=== PATIENT | female | born 1960 | race Caucasian/White ===

== ENCOUNTER 2016-10-08 02:35 | Emergency (ER) | payer BC ==
[2016-10-08 02:44] VITALS: BP 154/79
[2016-10-08] MEDS ORDERED: LORazepam 0.5 MG Tab PO ONE (03:16)
[2016-10-08] MEDS ORDERED: Meclizine 12.5 MG Tab PO ONE ×2 (03:17→03:20)
--- NOTE | 2016-10-08 03:22 | EDM.PDOC ---
ED HPI GENERAL MEDICAL PROBLEM - General Chief Complaint: Neurological Problem Stated Complaint: DIZZY Time Seen by Provider: 10/08/16 03:10 Source of Information: Reports: Patient History Limitations: Reports: No Limitations - History of Present Illness INITIAL COMMENTS - FREE TEXT/NARRATIVE: 55-year-old female presents to the ED with acute onset of vertigo 24 hours ago. She is appreciated any movement of the left side looking upwards or downwards will set off a vertigo event. The room spins. Associated nausea without any vomiting. No recent closed head injuries. No recent upper respiratory tract infections. She has had one bout of severe be a vertigo in the past about 2 years ago. Denies any ear pain or humming ringing or buzzing or decrease in hearing. She has no symptoms if she holds perfectly still. Denies any headache. 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.) - Related Data Allergies Allergy/AdvReac Type Severity Reaction Status Date / Time adhesive Allergy Hives Verified 08/05/14 17:01 contrast dyes Allergy Hives Uncoded 02/16/14 21:41 Home Meds: Home Meds Lansoprazole [Prevacid] 15 mg PO DAILY 11/15/13 [History] Levothyroxine [Levothroid] 137 mcg PO DAILY 11/15/13 [History] Metolazone 10 mg PO DAILY 11/15/13 [History] aMILoride [Midamor] 5 mg PO DAILY 11/15/13 [History] Past Medical History Other Cardiovascular History: EDEMA - WEARS COMPRESSION STOCKINGS, VARICOSE VEINS Respiratory History: Reports: Asthma Gastrointestinal History: Reports: GERD Other OB/BYN History: HX OF X4, 1 MISSED, 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 Endocrine/Metabolic History: Reports: Hypothyroidism Other Endocrine/Metabolic History: HYPOTHYROIDISM - Past Surgical History HEENT Surgical History: Reports: Tonsillectomy Other HEENT Surgeries/Procedures: ADENOIDECTOMY Other Female Surgeries/Procedures: C-SECTIONS X3, LEFT OVARIAN CYSTECTOMY Other Musculoskeletal Surgeries/Procedures:: BILATERAL CARPAL TUNNEL RELEASES X2 , GANGLION CYSTS REMOVED BILATERAL WRISTS Social & Family History - Family History Family Medical History: Noncontributory - Tobacco Use Smoking Status *Q: Never Smoker Second Hand Smoke Exposure: No - Caffeine Use Caffeine Use: Reports: Tea - Alcohol Use Days Per Week of Alcohol Use: 0 - Recreational Drug Use Recreational Drug Use: No Drug Use in Last 12 Months: No - Living Situation & Occupation Occupation: Employed ED ROS GENERAL - Review of Systems Review Of Systems: See Below Constitutional: Denies: Fever, Chills, Malaise, Weakness, Fatigue, Weight Loss HEENT: Reports: Vertigo (Noted when looking to the left up or down or getting in and out of bed.) Respiratory: Reports: No Symptoms Cardiovascular: Reports: No Symptoms Endocrine: Reports: No Symptoms GI/Abdominal: Reports: No Symptoms : Reports: No Symptoms Musculoskeletal: Reports: No Symptoms Skin: Reports: No Symptoms Neurological: Reports: Dizziness, Difficulty Walking. Denies: Headache (Which is vertigo. Improves if she holds perfectly still.), Pre-Existing Deficit, Seizure, Syncope, Tremors, Trouble Speaking, Weakness, Change in Speech Psychiatric: Reports: No Symptoms Hematologic/Lymphatic: Reports: No Symptoms Immunologic: Reports: No Symptoms ED EXAM, DIZZINESS - Physical Exam Exam: See Below Exam Limited By: No Limitations General Appearance: Alert, WD/WN, No Apparent Distress Eye Exam: Bilateral Eye: Normal Inspection (No nice tightness.) Ears: Other (Right tympanic membrane is mildly retracted left tympanic membrane is normal.) Nose: Normal Inspection, Normal Mucosa Throat/Mouth: Normal Inspection, Normal Lips, Normal Teeth, Normal Oropharynx Head Exam: Atraumatic, Normocephalic Neck: Normal Inspection, Supple, Non-Tender, Full Range of Motion. No: Lymphadenopathy (L), Lymphadenopathy (R) Respiratory/Chest: No Respiratory Distress, Lungs Clear, Normal Breath Sounds, No Accessory Muscle Use Cardiovascular: Normal Peripheral Pulses, Regular Rate, Rhythm, No Edema, No Gallop, No Murmur Neurological: Alert, Normal Mood/Affect, Normal Dorsiflexion, CN II-XII Intact, Normal Plantar Flexion, Normal Gait, Normal Reflexes, Oriented x 3, Other (No pronator drift.). No: Abnormal Finger to Nose Extremities: Normal Inspection, Normal Range of Motion, Non-Tender, No Pedal Edema Psychiatric: Normal Affect, Normal Mood Skin Exam: Warm, Dry, Intact, Normal Color, No Rash Course - Vital Signs Last Recorded V/S: Last Vital Signs Temp 36.4 C 10/08/16 02:42 Pulse 62 10/08/16 02:42 Resp 16 10/08/16 02:42 BP 154/79 H 10/08/16 02:42 Pulse Ox 95 10/08/16 02:42 - Orders/Labs/Meds Meds: Medications Discontinued Medications Generic Name Dose Route Start Last Admin Trade Name Freq PRN Reason Stop Dose Admin Lorazepam 0.5 mg 10/08/16 03:16 10/08/16 03:22 Ativan PO 10/08/16 03:17 0.5 mg ONETIME ONE Administration Meclizine HCl 25 mg 10/08/16 03:17 10/08/16 03:22 Antivert PO 10/08/16 03:18 25 mg ONETIME ONE Administration Meclizine HCl 25 mg 10/08/16 03:20 10/08/16 03:22 Antivert PO 10/08/16 03:21 25 mg ONETIME ONE Administration - Radiology Interpretation Free Text/Narrative:: 55-year-old female presents to the ED with a 24-hour history of vertigo symptoms. Symptoms are absent if she holds perfectly still worsened if she looks to the left or upwards or downwards. She's had one previous similar bad vertigo attack about 2 years ago. No associated headache. Neuro exam is completely normal. She has no nice statements on examination. Associated nausea without any vomiting. I'm going to therefore treat her simply with meclizine 25 mg every 8 hours for the next 5 days. Given a dose now on a dose to take home to take 11:00 this morning. She will then be able to pickle pumper at closing over-the -counter which is 12.5 mg tablets and take 2 every 8 hours. Suggest doing this for 5 days. Departure - Departure Time of Disposition: 03:25 Disposition: Home, Self-Care 01 Condition: Fair Clinical Impression: Benign paroxysmal positional vertigo Qualifiers: Laterality: right Qualified Code(s): H81.11 - Benign paroxysmal vertigo, right ear - Discharge Information Referrals: Ann Dowell MD [Primary Care Provider] - Forms: ED Department Discharge Additional Instructions: Evaluation in the emergency room tonight in regards to development of vertigo earlier yesterday. Much worse since he got up this morning after sleep. Appreciated onset of vertigo when looking upwards or getting in and out of bed and looking to the left. History of a previous similar severe episode of vertigo a few years ago. Examination reveals no signs of any inner ear infection. Neurologically brain is intact with no evidence of central nervous system cause of vertigo. Causes due to right-sided labyrinthine malfunction. Treatment is to be plenty of fluids. Suggest meclizine 25 mg every 8 hours for the next 5 days. If not better by day 6 or 7 and you need to be seen by your physician again.
== END 2016-10-08 03:33 | disposition home or self-care (01) ==
LOC: JD.ED 02:35
DX: H81.11 Benign paroxysmal vertigo, right ear (principal); J45.909 Unspecified asthma, uncomplicated; K21.9 Gastro-esophageal reflux disease without esophagitis; E03.9 Hypothyroidism, unspecified; Z91.041 Radiographic dye allergy status; Z91.048 Other nonmedicinal substance allergy status; Z79.899 Other long term (current) drug therapy; Z98.890 Other specified postprocedural states
CPT/HCPCS: 99283; A9270

== ENCOUNTER 2017-09-09 18:07 | Emergency (ER) | payer BC ==
[2017-09-09 19:01] VITALS: BP 118/77
--- NOTE | 2017-09-09 19:59 | EDM.PDOC ---
ED HPI GENERAL MEDICAL PROBLEM - General Chief Complaint: Lower Extremity Injury/Pain Stated Complaint: RIGHT FOOT PAIN Time Seen by Provider: 09/09/17 18:30 Source of Information: Reports: Patient History Limitations: Reports: No Limitations - History of Present Illness INITIAL COMMENTS - FREE TEXT/NARRATIVE: This is a 56-year-old female that comes in today with right foot pain that started about a week ago. No history of trauma, was a random onset. She states that it is at the top of her foot and radiates toward the ankle on the lateral aspect of the foot. She states she has been taking ibuprofen for 4 days but it has continued to get worse. She has also tried Tylenol, rest and ice with no relief. She has also been using a walking boot which has not helped. She also has chronic bilateral leg swelling of which the etiology is unknown. The swelling has been worked up in the past with no findings per pt. No skin discoloration, except slight redness on the right lateral foot. Currently she cannot bear any weight and she feels like someone is "cutting my skin with a knife". She states that just touching the skin is painful. She does complain of nausea and vomiting but denies fever or chills, headache, chest pain, shortness of breath. She has no history of diabetes, osteoarthritis, rheumatoid arthritis , venous insufficiency, CHF, DVT. She does have a history of gout of the left toe, tendinitis, plantar fasciitis. She states this does not feel like anything she has ever had before. No other complaints at this time. Right Feet Pain Score (Numeric/FACES): 7 - Related Data Allergies Allergy/AdvReac Type Severity Reaction Status Date / Time adhesive Allergy Hives Verified 08/05/14 17:01 contrast dyes Allergy Hives Uncoded 02/16/14 21:41 Home Meds: Home Meds Lansoprazole [Prevacid] 15 mg PO DAILY 11/15/13 [History] Levothyroxine [Levothroid] 137 mcg PO DAILY 11/15/13 [History] aMILoride [Midamor] 5 mg PO DAILY 11/15/13 [History] metOLazone [Metolazone] 10 mg PO DAILY 11/15/13 [History] Past Medical History Other Cardiovascular History: EDEMA - WEARS COMPRESSION STOCKINGS, VARICOSE VEINS Respiratory History: Reports: Asthma Gastrointestinal History: Reports: GERD 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, 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, 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 Endocrine/Metabolic History: Reports: Hypothyroidism Other Endocrine/Metabolic History: HYPOTHYROIDISM - Past Surgical History HEENT Surgical History: Reports: Tonsillectomy Other HEENT Surgeries/Procedures: ADENOIDECTOMY GI Surgical History: Reports: Bariatric Procedure Other Female Surgeries/Procedures: C-SECTIONS X3, LEFT OVARIAN CYSTECTOMY Other Musculoskeletal Surgeries/Procedures:: BILATERAL CARPAL TUNNEL RELEASES X2 , GANGLION CYSTS REMOVED BILATERAL WRISTS Social & Family History - Family History Family Medical History: Noncontributory - Tobacco Use Smoking Status *Q: Never Smoker - Caffeine Use Caffeine Use: Reports: Tea - Recreational Drug Use Recreational Drug Use: No - Living Situation & Occupation Occupation: Employed Review of Systems - Review of Systems Review Of Systems: ROS reveals no pertinent complaints other than HPI. ED EXAM, GENERAL - Physical Exam Exam: See Below Exam Limited By: No Limitations General Appearance: Alert, WD/WN, Mild Distress Eye Exam: Bilateral Eye: EOMI, PERRL Ears: Normal External Exam, Hearing Grossly Normal Nose: Normal Inspection, Normal Mucosa, No Blood Throat/Mouth: Normal Inspection, Normal Lips, Normal Teeth, Normal Gums, Normal Oropharynx, Normal Voice, No Airway Compromise Head: Atraumatic, Normocephalic Neck: Normal Inspection, Supple, Non-Tender, Full Range of Motion Respiratory/Chest: No Respiratory Distress, Lungs Clear, Normal Breath Sounds, No Accessory Muscle Use, Chest Non-Tender Cardiovascular: Normal Peripheral Pulses, Regular Rate, Rhythm, No Gallop, No JVD, No Murmur, No Rub, Other (Edema bilaterally, chronic) Peripheral Pulses: 3+: Posterior Tibial (L), Posterior Tibial (R), Dorsalis Pedis (L), Dorsalis Pedis (R) GI/Abdominal: Normal Bowel Sounds, Soft, Non-Tender, No Organomegaly, No Distention, No Abnormal Bruit, No Mass (Female) Exam: Deferred Rectal (Female) Exam: Deferred Back Exam: Normal Inspection, Full Range of Motion, NT Extremities: Normal Inspection, Normal Range of Motion, Normal Capillary Refill , Pedal Edema (bilaterally), Slow Capillary Refill, Redness (right lateral aspect of right foot), Other (TTP). No: Odalys's Sign Neurological: Alert, Oriented, CN II-XII Intact, Normal Cognition, Normal Gait, Normal Reflexes, No Motor/Sensory Deficits Psychiatric: Normal Affect, Normal Mood Skin Exam: Warm, Dry, Intact, Erythema (lateral aspect of right foot), Increased Warmth (lateral aspect of right foot) Course - Vital Signs Last Recorded V/S: Last Vital Signs Temp 97.3 F 09/09/17 18:57 Pulse 56 L 09/09/17 18:57 Resp 16 09/09/17 18:57 BP 118/77 09/09/17 18:57 Pulse Ox 95 09/09/17 18:57 - Orders/Labs/Meds Orders: Active Orders 24 hr Category Date Time Status Foot 2V Rt [CR] Stat Exams 09/09/17 19:47 Taken CRP, HIGH SENSITIVITY [REF] Stat Lab 09/09/17 19:50 Received Labs: Laboratory Tests 09/09/17 09/09/17 09/09/17 Range/Units 19:50 19:50 19:50 WBC 6.45 (3.98-10.04) K/mm3 RBC 4.47 (3.98-5.22) M/mm3 Hgb 12.8 (11.2-15.7) gm/L Hct 39.4 (34.1-44.9) % MCV 88.1 (79.4-94.8) fl MCH 28.6 (25.6-32.2) pg MCHC 32.5 (32.2-35.5) g/dl RDW Std Deviation 44.2 (36.4-46.3) fL Plt Count 243 (182-369) K/mm3 MPV 11.6 (9.4-12.3) fl Neut % (Auto) 63.8 (34.0-71.1) % Lymph % (Auto) 24.3 (19.3-51.7) % Will % (Auto) 10.5 (4.7-12.5) % Eos % (Auto) 0.9 (0.7-5.8) Baso % (Auto) 0.3 (0.1-1.2) % Neut # (Auto) 4.11 (1.56-6.13) K/mm3 Lymph # (Auto) 1.57 (1.18-3.74) K/mm3 Will # (Auto) 0.68 H (0.24-0.36) K/mm3 Eos # (Auto) 0.06 (0.04-0.36) K/mm3 Baso # (Auto) 0.02 (0.01-0.08) K/mm3 ESR 40 H (0-20) mm/hr Sodium 143 (136-145) mEq/L Potassium 2.8 L (3.5-5.1) mEq/L Chloride 102 (98-107) mEq/L Carbon Dioxide 35 H (21-32) mEq/L Anion Gap 8.8 (5-15) BUN 15 (7-18) mg/dL Creatinine 1.0 (0.55-1.02) mg/dL Est Cr Clr Drug Dosing 63.71 mL/min Estimated GFR (MDRD) 58 (>60) mL/min BUN/Creatinine Ratio 15.0 (14-18) Glucose 92 (74-106) mg/dL Calcium 8.7 (8.5-10.1) mg/dL Total Bilirubin 0.5 (0.2-1.0) mg/dL AST 31 (15-37) U/L ALT 28 (14-59) U/L Alkaline Phosphatase 146 H (46-116) U/L Total Protein 6.5 (6.4-8.2) g/dl Albumin 2.9 L (3.4-5.0) g/dl Globulin 3.6 gm/dL Albumin/Globulin Ratio 0.8 L (1-2) - Re-Assessments/Exams Free Text/Narrative Re-Assessment/Exam: 09/09/17 20:01 I have ordered labs and foot Xray. 09/09/17 21:00 Dr. Last and I went over the Xray and found no acute abnormalities. Labs were not impressive for infection, but there was an elevated ESR of 40, which shows that there is an inflammatory process. Departure - Departure Time of Disposition: 10:15 Disposition: Home, Self-Care 01 Condition: Fair Clinical Impression: Foot pain, right - Discharge Information *PRESCRIPTION DRUG MONITORING PROGRAM REVIEWED*: Yes *COPY OF PRESCRIPTION DRUG MONITORING REPORT IN PATIENT JUNITO: Not Applicable Instructions: Crutch Use, Adult, [id number], Foot Pain Referrals: Ann Dowell MD [Primary Care Provider] - Jeremy Lott MD [Physician] - Forms: ED Department Discharge Additional Instructions: You were seen in the ED today for right foot pain. The Xray showed no acute abnormalities and your labs did not show an infectious process. At this time, we recommend following up with Orthopedics, Dr. Lott. Please call in the morning to make an appointment. You will be discharged home with a prescription for [place] for your pain. Take 1 tablet every 3-4 hours for pain. Total of 6 pills. Continue to rest, ice, elevate and use ibuprofen for pain/inflammation management. Continue to use your medical boot and crutches to help keep weight off the foot. Please return to the ED if worsening of symptoms and/or fever. - My Orders Last 24 Hours: My Active Orders 09/09/17 19:47 Foot 2V Rt [CR] Stat 09/09/17 19:50 CRP, HIGH SENSITIVITY [REF] Stat - Assessment/Plan Last 24 Hours: My Active Orders 09/09/17 19:47 Foot 2V Rt [CR] Stat 09/09/17 19:50 CRP, HIGH SENSITIVITY [REF] Stat
--- NOTE | 2017-09-10 07:13 | CR ---
Right foot: Four views of the right foot were obtained. Comparison: No prior foot exam. Large plantar spur is seen as well as additional spur at the attachment of the Achilles tendon to the calcaneus. Soft tissue swelling is identified. Bone density is noted at the base of the fifth metatarsal which is felt to be old. Osteopenia is present. No acute fracture, dislocation or other bony abnormality is identified. Mild soft tissue swelling is present. Impression: 1. Mild soft tissue swelling. Incidental calcaneal spurs. 2. Nothing acute is otherwise seen on right foot exam. Diagnostic code #2
== END 2017-09-09 22:37 | disposition home or self-care (01) ==
LOC: JD.ED 18:07
DX: M79.671 Pain in right foot (principal); J45.909 Unspecified asthma, uncomplicated; K21.9 Gastro-esophageal reflux disease without esophagitis; Z79.899 Other long term (current) drug therapy; Z91.041 Radiographic dye allergy status
CPT/HCPCS: 36415; 73620-26-RT; 73620-RT; 80053; 85025; 85652; 86141; 99283; 99284

== ENCOUNTER 2017-10-04 15:32 | Emergency (ER) | payer BC ==
[2017-10-04 15:45] VITALS: BP 167/65
--- NOTE | 2017-10-04 16:37 | EDM.PDOC ---
ED HPI GENERAL MEDICAL PROBLEM - General Chief Complaint: Cardiovascular Problem Stated Complaint: SWOLLEN LEGS Time Seen by Provider: 10/04/17 16:15 Source of Information: Reports: Patient History Limitations: Reports: No Limitations - History of Present Illness INITIAL COMMENTS - FREE TEXT/NARRATIVE: Patient is a 56-year-old female presents ED complaining of bilateral lower extremity swelling. This has been present for almost 3 and half weeks.As of recent she has gained 6 pounds in total with worsening edema to her lower extremities. At times at night she experiences orthopnea with laying flat. She' s been up more at night secondary to chronic pain to her feet. She was evaluated by guard immigration today with cortisone injections to the feet. MRI study was obtained indicating no fracture but severe arthritis. She was advised to come to the ED for further evaluation. She did go to the walk-in clinic today for evaluation and and stated this exceeded their capabilities. She has noticed increased swelling at night and better in the a.m. She does use compression stockings on a daily basis. She has been taking tramadol for pain with little relief. Patient does sit more hours of the day thus continued to increase in swelling. She has been eating and drinking well. Eat a balanced diet. She does have history gastric bypass this past fall has lost approximately 123 pounds. She's had a full cardiac workup prior to gastric bypass with nothing concerning. Echocardiogram was normal at that time. States 2 days ago she had a tactile fever. Has been no dizziness or palpitations, dysuria, abdominal pain, rash, near syncope episodes, change in diet, or any additional complaints. Treatments COMMUNITY DEVELOPMENT SPECIALIST: Reports: Acetaminophen Bilateral Feet Pain Score (Numeric/FACES): 7 - Related Data Allergies Allergy/AdvReac Type Severity Reaction Status Date / Time adhesive Allergy Hives Verified 10/04/17 15:44 contrast dyes Allergy Hives Uncoded 10/04/17 15:44 Home Meds: Home Meds Lansoprazole [Prevacid] 15 mg PO DAILY 11/15/13 [History] Levothyroxine [Levothroid] 137 mcg PO DAILY 11/15/13 [History] Past Medical History Other Cardiovascular History: EDEMA - WEARS COMPRESSION STOCKINGS, VARICOSE VEINS Respiratory History: Reports: Asthma Gastrointestinal History: Reports: GERD 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: HX OF X4, 1 MISSED, 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 Endocrine/Metabolic History: Reports: Hypothyroidism Other Endocrine/Metabolic History: HYPOTHYROIDISM - Past Surgical History HEENT Surgical History: Reports: Tonsillectomy Other HEENT Surgeries/Procedures: ADENOIDECTOMY GI Surgical History: Reports: Bariatric Procedure Other Female Surgeries/Procedures: C-SECTIONS X3, LEFT OVARIAN CYSTECTOMY Other Musculoskeletal Surgeries/Procedures:: BILATERAL CARPAL TUNNEL RELEASES X2 , GANGLION CYSTS REMOVED BILATERAL WRISTS Social & Family History - Family History Family Medical History: Noncontributory - Tobacco Use Smoking Status *Q: Never Smoker - Caffeine Use Caffeine Use: Reports: Tea - Recreational Drug Use Recreational Drug Use: No - Living Situation & Occupation Occupation: Employed ED ROS GENERAL - Review of Systems Review Of Systems: See Below Constitutional: Denies: Fever, Chills, Malaise, Weakness, Fatigue, Decreased Appetite HEENT: Reports: No Symptoms Respiratory: Denies: Shortness of Breath, Cough, Sputum Cardiovascular: Reports: Dyspnea on Exertion, Edema, Orthopnea. Denies: Chest Pain, Lightheadedness, Palpitations, PND, Syncope Endocrine: Reports: No Symptoms GI/Abdominal: Reports: No Symptoms Musculoskeletal: Reports: Foot Pain (Bilateral) Skin: Reports: No Symptoms Neurological: Reports: No Symptoms ED EXAM, GENERAL - Physical Exam Exam: See Below Exam Limited By: No Limitations General Appearance: Alert, WD/WN, No Apparent Distress Ears: Hearing Grossly Normal Nose: Normal Inspection Throat/Mouth: Normal Voice, No Airway Compromise Neck: Normal Inspection, Supple Respiratory/Chest: No Respiratory Distress, Lungs Clear, Normal Breath Sounds, No Accessory Muscle Use, Chest Non-Tender Cardiovascular: Normal Peripheral Pulses, Regular Rate, Rhythm, No Murmur Peripheral Pulses: 1+: Posterior Tibial (L), Posterior Tibial (R) GI/Abdominal: Normal Bowel Sounds, Soft, Non-Tender, No Organomegaly, No Distention Back Exam: Normal Inspection Extremities: Normal Range of Motion, Pedal Edema (Pedal edema noted to the feet and the distal third of the lower extremities bilateral. 1+ to trace extremity superior of that.) Neurological: Alert, Oriented, CN II-XII Intact, Normal Cognition, No Motor/ Sensory Deficits Psychiatric: Normal Affect, Normal Mood Skin Exam: Warm, Dry, Intact, Normal Color, No Rash Course - Vital Signs Last Recorded V/S: Last Vital Signs Temp 98.6 F 10/04/17 15:40 Pulse 59 L 10/04/17 15:40 Resp 18 10/04/17 15:40 BP 167/65 H 10/04/17 15:40 Pulse Ox 98 10/04/17 15:40 - Orders/Labs/Meds Orders: Active Orders 24 hr Category Date Time Status EKG 12 Lead [EKG Documentation Completion] [RC] STAT Care 10/04/17 15:53 Active UA W/MICROSCOPIC [URIN] Stat Lab 10/04/17 16:26 Ordered Labs: Laboratory Tests 10/04/17 10/04/17 10/04/17 Range/Units 16:37 16:37 16:37 WBC 4.48 (3.98-10.04) K/mm3 RBC 4.27 (3.98-5.22) M/mm3 Hgb 12.2 (11.2-15.7) gm/L Hct 37.2 (34.1-44.9) % MCV 87.1 (79.4-94.8) fl MCH 28.6 (25.6-32.2) pg MCHC 32.8 (32.2-35.5) g/dl RDW Std Deviation 42.5 (36.4-46.3) fL Plt Count 254 (182-369) K/mm3 MPV 10.7 (9.4-12.3) fl Neutrophils % (Manual) 76 H (40-60) % Band Neutrophils % 0 (0-10) % Lymphocytes % (Manual) 22 (20-40) % Atypical Lymphs % 0 % Monocytes % (Manual) 1 L (2-10) % Eosinophils % (Manual) 0 L (0.7-5.8) % Basophils % (Manual) 1 (0.1-1.2) Platelet Estimate Adequate Plt Morphology Comment Normal Anisocytosis 1+ slight RBC Morph Comment Not Reportable ESR (0-20) mm/hr Sodium 145 (136-145) mEq/L Potassium 3.1 L (3.5-5.1) mEq/L Chloride 108 H (98-107) mEq/L Carbon Dioxide 30 (21-32) mEq/L Anion Gap 10.1 (5-15) BUN 11 (7-18) mg/dL Creatinine 0.9 (0.55-1.02) mg/dL Est Cr Clr Drug Dosing 69.49 mL/min Estimated GFR (MDRD) > 60 (>60) mL/min BUN/Creatinine Ratio 12.2 L (14-18) Glucose 118 H (74-106) mg/dL Calcium 8.7 (8.5-10.1) mg/dL Total Bilirubin 0.5 (0.2-1.0) mg/dL AST 51 H (15-37) U/L ALT 42 (14-59) U/L Alkaline Phosphatase 230 H (46-116) U/L Troponin I < 0.017 (0.00-0.056) ng/mL C-Reactive Protein 1.4 H* (<1.0) mg/dL NT-Pro-B Natriuret Pep 322 H (0-125) pg/mL Total Protein 6.3 L (6.4-8.2) g/dl Albumin 2.6 L (3.4-5.0) g/dl Globulin 3.7 gm/dL Albumin/Globulin Ratio 0.7 L (1-2) TSH 3rd Generation 0.031 L (0.358-3.74) uIU/mL 10/04/17 Range/Units 16:37 WBC (3.98-10.04) K/mm3 RBC (3.98-5.22) M/mm3 Hgb (11.2-15.7) gm/L Hct (34.1-44.9) % MCV (79.4-94.8) fl MCH (25.6-32.2) pg MCHC (32.2-35.5) g/dl RDW Std Deviation (36.4-46.3) fL Plt Count (182-369) K/mm3 MPV (9.4-12.3) fl Neutrophils % (Manual) (40-60) % Band Neutrophils % (0-10) % Lymphocytes % (Manual) (20-40) % Atypical Lymphs % % Monocytes % (Manual) (2-10) % Eosinophils % (Manual) (0.7-5.8) % Basophils % (Manual) (0.1-1.2) Platelet Estimate Plt Morphology Comment Anisocytosis RBC Morph Comment ESR 33 H (0-20) mm/hr Sodium (136-145) mEq/L Potassium (3.5-5.1) mEq/L Chloride (98-107) mEq/L Carbon Dioxide (21-32) mEq/L Anion Gap (5-15) BUN (7-18) mg/dL Creatinine (0.55-1.02) mg/dL Est Cr Clr Drug Dosing mL/min Estimated GFR (MDRD) (>60) mL/min BUN/Creatinine Ratio (14-18) Glucose (74-106) mg/dL Calcium (8.5-10.1) mg/dL Total Bilirubin (0.2-1.0) mg/dL AST (15-37) U/L ALT (14-59) U/L Alkaline Phosphatase (46-116) U/L Troponin I (0.00-0.056) ng/mL C-Reactive Protein (<1.0) mg/dL NT-Pro-B Natriuret Pep (0-125) pg/mL Total Protein (6.4-8.2) g/dl Albumin (3.4-5.0) g/dl Globulin gm/dL Albumin/Globulin Ratio (1-2) TSH 3rd Generation (0.358-3.74) uIU/mL - Re-Assessments/Exams Free Text/Narrative Re-Assessment/Exam: Patient has pitting edema to her feet and distal third of the lower extremities. 1+ to trace superior. At this point patient has no significant complaints. She does have a history of shortness of breath with exertion and also some orthopnea. Described as mild in nature. She has chronic pain to her extremities. She was seen by guard immigration today with MRI study obtained with no fracture noted. She did receive a cortisone injection this morning. I've opted to obtain basic labs including: CBC, chem 14, CRP, ESR, proBNP, troponin, TSH, UA, chest x-ray two-view, EKG. EKG sinus bradycardia rate [address] changes noted. Chest x-ray no acute findings. Final interpretation is pending. Labs reviewed: Sodium 145, potassium mildly low at 3.1, glucose 118, AST 51, alk phosphatase 2:30, troponin less than 0.017, CRP 1.4, proBNP mildly elevated at 322, TSH low at 0.031. CBC essentially normal. ESR elevated at 33. At this point we don't have any thing emergent at this point to treat. This is a chronic issue and should be managed by primary care provider. Labs reviewed: Sodium 145, potassium mildly low at 3.1, glucose 118, AST 51, alk phosphatase 2:30, troponin less than 0.017, CRP 1.4, proBNP mildly elevated at 322, TSH low at 0.031. CBC essentially normal. ESR elevated at 33. At this point we don't have any thing emergent at this point to treat. This is a chronic issue and should be managed by primary care provider. I did share results of labs, EKG, and chest x-ray with the patient. She has provided to me she has taken Lasix 20 mg for 4 days with no significant change in edema to her lower extremities. She may require more. She has appointment with her PCP scheduled for this coming Sunday. Again I will let the PCP manage this. She'll continue with compression stockings as instructed. Elevate when able to reduce any swelling. Stick with a low-sodium diet. She will return back to the ED if she develops any new or worsening symptoms. The patient remained hemodynamically stable while under my care in the E.D. I discussed the concerning symptoms for which to return to the E.D. with the patient/family. The patient/family verbalized understanding. All questions were answered. Departure - Departure Time of Disposition: 18:37 Disposition: Home, Self-Care 01 Condition: Good Clinical Impression: Hypokalemia, Low TSH level, Pedal edema Instructions: Edema, Hypokalemia, Potassium Content of Foods, Peripheral Edema Referrals: Ann Dowell MD [Primary Care Provider] - Forms: ED Department Discharge Additional Instructions: Stick with a low salt diet. Elevate when able to reduce any swelling. Continue using the compression stockings as instructed. Keep appointment with PCP as scheduled for this sunday. Please return back to the ED if you develop any new or worsening symptoms. Suspect a diuretic may be required to facilitate decrease in edema. I will let the PCP manage this. Potassium is mildly low so please read the education material for potassium diet. - My Orders Last 24 Hours: My Active Orders 10/04/17 15:53 EKG 12 Lead [EKG Documentation Completion] [RC] STAT 10/04/17 16:26 UA W/MICROSCOPIC [URIN] Stat - Assessment/Plan Last 24 Hours: My Active Orders 10/04/17 15:53 EKG 12 Lead [EKG Documentation Completion] [RC] STAT 10/04/17 16:26 UA W/MICROSCOPIC [URIN] Stat
--- NOTE | 2017-10-04 17:15 | CR ---
Chest: Portable view of the chest was obtained. Comparison: Previous chest x-ray of 11/23/14. Heart size and mediastinum are within normal limits for portable technique. Lungs are clear. Degenerative change is noted within the spine with mild scoliosis. Surgical clips are seen from prior cholecystectomy. Impression: 1. Incidental findings. Nothing acute is appreciated on portable chest x-ray. Diagnostic code #2
== END 2017-10-04 18:59 | disposition home or self-care (01) ==
LOC: JD.ED 15:32
DX: R60.0 Localized edema (principal); E87.6 Hypokalemia; R94.6 Abnormal results of thyroid function studies; E03.9 Hypothyroidism, unspecified; Z91.09 Other allergy status, other than to drugs and biological substances; Z79.899 Other long term (current) drug therapy
CPT/HCPCS: 36415; 71045; 71045-26; 80053; 83880; 84443; 84484; 85007; 85027; 85652; 86140; 93005; 99284-25

== ENCOUNTER 2018-07-13 18:08 | Emergency (ER) | payer BC ==
[2018-07-13 18:42] VITALS: BP 178/85
--- NOTE | 2018-07-13 19:31 | EDM.PDOC ---
ED HPI GENERAL MEDICAL PROBLEM - General Chief Complaint: Lower Extremity Injury/Pain Stated Complaint: PAIN IN BOTH KNEES Time Seen by Provider: 07/13/18 19:07 Source of Information: Reports: Patient History Limitations: Reports: No Limitations - History of Present Illness INITIAL COMMENTS - FREE TEXT/NARRATIVE: This is a 57-year-old female. Apparently about 1 AM this morning she awoke with severe pain in both of her knees. There is also redness over the top of the knees. She says she could barely move or bend them or walk without excruciating pain. She states she has a history of gout in her feet but never a history of gout in her knees. She denies any change in her diet recently. She does not take any medications for gout. She has a history of gastric bypass surgery she cannot take any anti-inflammatories like ibuprofen. She denies any fever or chills she denies any recent illnesses colds or coughs. She is here because of the severe pain and redness of her knees. It appears that the left one is worse than the right one. Left Knee Pain Score (Numeric/FACES): 10 Right Knee Pain Score (Numeric/FACES): 7 - Related Data Allergies Allergy/AdvReac Type Severity Reaction Status Date / Time adhesive Allergy Hives Verified 07/13/18 18:36 contrast dyes Allergy Hives Uncoded 07/13/18 18:36 Home Meds: Home Meds Levothyroxine [Levothroid] 137 mcg PO DAILY 11/15/13 [History] Colchicine 0.6 mg PO BID #10 capsule 07/13/18 [Rx] Hydrocodone/Acetaminophen [Hydrocodon-Acetaminophen 5-325] 1 each PO Q6H PRN # 15 tablet 07/13/18 [Rx] Past Medical History Other Cardiovascular History: EDEMA - WEARS COMPRESSION STOCKINGS, VARICOSE VEINS Respiratory History: Reports: Asthma Gastrointestinal History: Reports: GERD 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, 1 MISSED, 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 Endocrine/Metabolic History: Reports: Hypothyroidism Other Endocrine/Metabolic History: HYPOTHYROIDISM - Past Surgical History HEENT Surgical History: Reports: Tonsillectomy Other HEENT Surgeries/Procedures: ADENOIDECTOMY GI Surgical History: Reports: Bariatric Procedure Other Female Surgeries/Procedures: C-SECTIONS X3, LEFT OVARIAN CYSTECTOMY Other Musculoskeletal Surgeries/Procedures:: BILATERAL CARPAL TUNNEL RELEASES X2 , GANGLION CYSTS REMOVED BILATERAL WRISTS Social & Family History - Family History Family Medical History: Noncontributory - Tobacco Use Smoking Status *Q: Never Smoker - Caffeine Use Caffeine Use: Reports: Tea - Recreational Drug Use Recreational Drug Use: No - Living Situation & Occupation Occupation: Employed Review of Systems - Review of Systems Review Of Systems: See Below Constitutional: Reports: No Symptoms Eyes: Reports: No Symptoms Ears: Reports: No Symptoms Nose: Reports: No Symptoms Mouth/Throat: Reports: No Symptoms Respiratory: Reports: No Symptoms Cardiovascular: Reports: No Symptoms GI/Abdominal: Reports: No Symptoms Genitourinary: Reports: No Symptoms Musculoskeletal: Reports: Other (Knee pain bilaterally) Skin: Reports: Erythema Neurological: Reports: No Symptoms Psychiatric: Reports: No Symptoms ED EXAM, GENERAL - Physical Exam Exam: See Below Exam Limited By: No Limitations General Appearance: Alert, WD/WN, No Apparent Distress Eye Exam: Bilateral Eye: Normal Inspection Ears: Normal External Exam Nose: Normal Inspection Throat/Mouth: Normal Inspection, Normal Lips, Normal Voice, No Airway Compromise Head: Normocephalic Neck: Supple Respiratory/Chest: No Respiratory Distress, Lungs Clear, Normal Breath Sounds Cardiovascular: Regular Rate, Rhythm, No Murmur GI/Abdominal: Soft Back Exam: Full Range of Motion Extremities: Joint Swelling, Other (Both of her knees she indicates her painful. The right knee appears to be less erythematous and less painful than the left knee, the left knee has a large patch of erythema over the patella area but not posteriorly or on the sides, she keeps it slightly bent because it hurts to straighten it completely though she cannot bend it completely either due to the pain) Neurological: Alert, Oriented Psychiatric: Normal Affect, Normal Mood Skin Exam: Warm, Dry Course - Vital Signs Last Recorded V/S: Last Vital Signs Temp 99.0 F 07/13/18 18:36 Pulse 65 07/13/18 18:36 Resp 18 07/13/18 18:36 BP 178/85 H 07/13/18 18:36 Pulse Ox 99 07/13/18 18:36 - Orders/Labs/Meds Labs: Laboratory Tests 07/13/18 07/13/18 Range/Units 19:34 19:34 WBC 6.60 (3.98-10.04) K/mm3 RBC 3.62 L (3.98-5.22) M/mm3 Hgb 11.0 L (11.2-15.7) gm/L Hct 34.1 (34.1-44.9) % MCV 94.2 D (79.4-94.8) fl MCH 30.4 (25.6-32.2) pg MCHC 32.3 (32.2-35.5) g/dl RDW Std Deviation 44.2 (36.4-46.3) fL Plt Count 213 (182-369) K/mm3 MPV 10.5 (9.4-12.3) fl Neut % (Auto) 61.4 (34.0-71.1) % Lymph % (Auto) 27.0 (19.3-51.7) % Stearns % (Auto) 10.3 (4.7-12.5) % Eos % (Auto) 0.9 (0.7-5.8) Baso % (Auto) 0.2 (0.1-1.2) % Neut # (Auto) 4.06 (1.56-6.13) K/mm3 Lymph # (Auto) 1.78 (1.18-3.74) K/mm3 Stearns # (Auto) 0.68 H (0.24-0.36) K/mm3 Eos # (Auto) 0.06 (0.04-0.36) K/mm3 Baso # (Auto) 0.01 (0.01-0.08) K/mm3 Sodium 145 (136-145) mEq/L Potassium 3.0 L (3.5-5.1) mEq/L Chloride 110 H (98-107) mEq/L Carbon Dioxide 30 (21-32) mEq/L Anion Gap 8.0 (5-15) BUN 12 (7-18) mg/dL Creatinine 0.9 (0.55-1.02) mg/dL Est Cr Clr Drug Dosing 64.23 mL/min Estimated GFR (MDRD) > 60 (>60) mL/min BUN/Creatinine Ratio 13.3 L (14-18) Glucose 86 (74-106) mg/dL Uric Acid 3.7 (2.6-6.0) mg/dL Calcium 8.2 L (8.5-10.1) mg/dL Total Bilirubin 0.4 (0.2-1.0) mg/dL AST 37 (15-37) U/L ALT 62 H (14-59) U/L Alkaline Phosphatase 126 H (46-116) U/L Total Protein 5.6 L (6.4-8.2) g/dl Albumin 2.7 L (3.4-5.0) g/dl Globulin 2.9 gm/dL Albumin/Globulin Ratio 0.9 L (1-2) Meds: Medications Discontinued Medications Generic Name Dose Route Start Last Admin Trade Name Carmen PRN Reason Stop Dose Admin Colchicine 1.8 mg 07/13/18 20:24 Colcrys PO 07/13/18 20:25 ONETIME ONE - Re-Assessments/Exams Free Text/Narrative Re-Assessment/Exam: 07/13/18 20:27 Spoke to the patient regarding her lab test. I am assuming this is gout or pseudogout and we will give her some colchicine first dose here and then send her home with a tablet as well as prescription for the medication. She is to follow-up with her family doctor this week for recheck. Departure - Departure Time of Disposition: 20:28 Disposition: Home, Self-Care 01 Condition: Fair Clinical Impression: Inflammation of joint of left knee, Inflammation of joint of right knee Acute gout Qualifiers: Gout site: knee Gout etiology: unspecified cause Laterality: unspecified laterality Qualified Code(s): M10.9 - Gout, unspecified - Discharge Information *PRESCRIPTION DRUG MONITORING PROGRAM REVIEWED*: Yes *COPY OF PRESCRIPTION DRUG MONITORING REPORT IN PATIENT JUNITO: No Prescriptions: Colchicine 0.6 mg PO BID #10 capsule Hydrocodone/Acetaminophen [Hydrocodon-Acetaminophen 5-325] 1 each PO Q6H PRN # 15 tablet PRN Reason: Pain Instructions: Low-Purine Eating Plan, Gout Referrals: Ann Dowell MD [Primary Care Provider] - Forms: ED Department Discharge, ED Return to Work/School Form Additional Instructions: Take the colchicine as prescribed, use a warm compress to your knees to help with the soreness and the redness, use the pain medicine as needed, follow up with your family doctor this week for recheck, return to the ER if needed
[2018-07-13] MEDS ORDERED: Colchicine 0.6 MG Tab PO ONE (20:24)
== END 2018-07-13 20:53 | disposition home or self-care (01) ==
LOC: JD.ED 18:08
DX: M25.461 Effusion, right knee (principal); M25.462 Effusion, left knee; M10.9 Gout, unspecified; E87.6 Hypokalemia; J45.909 Unspecified asthma, uncomplicated; K21.9 Gastro-esophageal reflux disease without esophagitis; E83.51 Hypocalcemia; Z91.041 Radiographic dye allergy status; Z79.899 Other long term (current) drug therapy
CPT/HCPCS: 36415; 80053; 84550; 85025; 99283; A9270

== ENCOUNTER 2018-08-09 06:18 | Day surgery (SDC) | payer BC ==
--- NOTE | 2018-08-07 09:46 | PCM.PREANE ---
Preanesthetic Assessment - Anesthesia/Transfusion/Family Hx Anesthesia History: Prior Anesthesia Without Reaction Family History of Anesthesia Reaction: No Transfusion History: No Prior Transfusion(s) Intubation History: Unknown - Review of Systems General: No Symptoms, Fatigue Pulmonary: No Symptoms (Asthma) Cardiovascular: No Symptoms (History of HTN), Palpitations, Edema (History of edema) Gastrointestinal: No Symptoms (History of epigastric pain/2017 Gastric Bypass surgery performed/partial gastrectomy/), Decreased Appetite Neurological: No Symptoms (vertigo on occasion) Other: Reports: None, Thyroid Problems (Hypothyroid) - Physical Assessment NPO Status Date: 08/08/18 NPO Status Time: 21:00 Pulse: 51 O2 Sat by Pulse Oximetry: 97 Respiratory Rate: 16 Blood Pressure: 133/75 Temperature: 36.4 C Height: 1.73 m Weight: 56.699 kg ASA Class: 2 Mental Status: Alert & Oriented x3 Airway Class: Mallampati = 2 Dentition: Reports: Normal Dentition, Caries Thyro-Mental Finger Breadths: 3 Mouth Opening Finger Breadths: 3 ROM/Head Extension: Full Lungs: Clear to Auscultation, Normal Respiratory Effort Cardiovascular: Regular Rate, Regular Rhythm, No Murmurs - Lab Values: Labs from 06/2018 noted. Plan to repeat electrolytes if more current labs not performed. - Imaging/EKG Impressions: EK Sinus bradycardia rate= 49 - Allergies Allergies/Adverse Reactions: Allergies Allergy/AdvReac Type Severity Reaction Status Date / Time adhesive Allergy Hives Verified 08/08/18 13:34 Iodinated Contrast- Oral and Allergy Hives Verified 08/08/18 13:34 IV Dye raspberry Allergy Airway Verified 08/08/18 13:34 Tightness food coloring Allergy Hives Uncoded 08/08/18 13:34 - Anesthesia Plan Pre-Op Medication Ordered: None - Acknowledgements Anesthesia Type Planned: MAC Pt an Appropriate Candidate for the Planned Anesthesia: Yes Alternatives and Risks of Anesthesia Discussed w Pt/Guardian: Yes Pt/Guardian Understands and Agrees with Anesthesia Plan: Yes PreAnesthesia Questionnaire Other Cardiovascular History: EDEMA - WEARS COMPRESSION STOCKINGS, VARICOSE VEINS Respiratory History: Reports: Asthma Gastrointestinal History: Reports: GERD 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 OB/BYN History: HX OF X4, 1 MISSED, 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 Endocrine/Metabolic History: Reports: Hypothyroidism Other Endocrine/Metabolic History: HYPOTHYROIDISM - Past Surgical History HEENT Surgical History: Reports: Tonsillectomy Other HEENT Surgeries/Procedures: ADENOIDECTOMY GI Surgical History: Reports: Bariatric Procedure Other Female Surgeries/Procedures: C-SECTIONS X3, LEFT OVARIAN CYSTECTOMY Other Musculoskeletal Surgeries/Procedures:: BILATERAL CARPAL TUNNEL RELEASES X2 , GANGLION CYSTS REMOVED BILATERAL WRISTS - HOME MEDS Home Medications: Home Meds Cyanocobalamin (Vitamin B-12) [Vitamin B-12] 1,000 mcg PO Q48H 08/08/18 [History ] Gabapentin [Neurontin] 100 mg PO BEDTIME 08/08/18 [History] Levothyroxine 112 mcg PO DAILY 08/08/18 [History] - CURRENT (IN HOUSE) MEDS Current Meds: Current Medications Lactated Ringer's (Ringers, Lactated) 1,000 mls @ 125 mls/hr IV ASDIRECTED ERIKA Stop: 08/09/18 23:00 Lidocaine/Sodium Bicarbonate (Buffered Lidocaine 1% In Ns 8.4%) 0.25 ml IDERM ONETIME PRN PRN Reason: Prior to IV Start Stop: 08/09/18 18:00 Sodium Chloride (Saline Flush) 10 ml FLUSH ASDIRECTED PRN PRN Reason: Keep Vein Open Stop: 08/09/18 18:00
[~2018-08-09 06:18] MED LIST: Lactated Ringers 1,000 ML IV SCH; Lidocaine 1%/Sod Bicarbonate in NS 8.4% 1 ML Syringe IDERM PRN; Sodium Chloride 0.9% 10 ML Syringe FLUSH PRN
[2018-08-09] MEDS ORDERED: Propofol 200 MG/20 ML SDV ONE ×2 (07:08→08:16)
[2018-08-09] MEDS ORDERED: Lidocaine 1% 6 ML ONE (07:08)
[2018-08-09] MEDS ORDERED: fentaNYL 100 MCG/2 ML SDV ONE (07:09)
[2018-08-09] MEDS ORDERED: Lactated Ringers 1,000 ML ONE (07:15)
--- NOTE | 2018-08-09 08:39 | PCM48HPAN ---
Post Anesthesia Note - EVALUATION WITHIN 48HRS OF ANESTHETIC Vital Signs in Normal Range: Yes Patient Participated in Evaluation: Yes Respiratory Function Stable: Yes Airway Patent: Yes Cardiovascular Function Stable: Yes Hydration Status Stable: Yes Pain Control Satisfactory: Yes Nausea and Vomiting Control Satisfactory: Yes Mental Status Recovered: Yes
--- NOTE | 2018-08-09 08:50 | PCM.OPNOTE ---
- General Post-Op/Procedure Note Date of Surgery/Procedure: 08/09/18 Operative Procedure(s): esophagogastroduodenoscopy with cold forceps biopsy, colonoscopy with cold forceps biopsy Findings: Gastritis, Internal hemorrhoids Pre Op Diagnosis: Epigastric pain, hematochezia, change in bowel habits, diarrhea Post-Op Diagnosis: Gastritis, Grade I internal hemorrhoids Anesthesia Technique: MAC Primary Surgeon: Chuck Lozoya Anesthesia Provider: Elizabeth Wheat EBL in mLs: 5 Complications: None Condition: Good Free Text/Narrative:: After the patient gave verbal and written consent she was placed on blood pressure and pulse ox monitoring. She was given iv sedation which she tolerated well. The olympus gastroscope was inserted in the oropharynx and advanced to the proximal jejunum. The patient has a noted Nicho en Y gastric bypass surgery with no evidence of anastamotic leak or breakdown. Biopsies were taken of the remaining gastric body mucosa and duodenum. Mild gastritis was noted of the stomach. Retroflexion did not reveal any abnormality. THe scope was straightened and brought back to the GE junction. This was normal to appearance. The scope was then removed. The patient was prepped for colonoscopy and the colonoscope was advanced to the cecum without difficulty. THe ileocecal valve and appendiceal orfice were imaged documenting cecal intubation. The scope was slowly withdrawn. The prep was adequate. Some residual stool had to be aspirated to achieve mucosal views. Random biopsies were taken of the ascending, transverse, descending, sigmoid and rectum. There was hemostasis. The scope was retroflexed in the rectum and Grade I internal hemorrhoids were noted. THe scope was removed. The patient left the endoscopy suite in good condition. There were no complications.
[2018-08-09 09:41] VITALS: BP 143/70
== END 2018-08-09 09:20 | disposition home or self-care (01) ==
LOC: JD.SDS 06:18
PROVIDERS: ATTEND Family Medicine
DX: K29.51 Unspecified chronic gastritis with bleeding (principal); K64.0 First degree hemorrhoids; R19.4 Change in bowel habit; K21.9 Gastro-esophageal reflux disease without esophagitis; I10 Essential (primary) hypertension; J45.909 Unspecified asthma, uncomplicated; G47.33 Obstructive sleep apnea (adult) (pediatric); E03.9 Hypothyroidism, unspecified; Z98.84 Bariatric surgery status; Z79.899 Other long term (current) drug therapy; Z91.041 Radiographic dye allergy status; Z91.018 Allergy to other foods; Z91.048 Other nonmedicinal substance allergy status
CPT/HCPCS: 36415; 43239; 45380; 80053; J2001; J2704; J3010; J7120; 00813

== ENCOUNTER 2018-08-16 18:53 | Emergency (ER) | payer BC ==
--- NOTE | 2018-08-16 19:07 | EDM.PDOC ---
ED HPI GENERAL MEDICAL PROBLEM - General Chief Complaint: Lower Extremity Injury/Pain Stated Complaint: KNEE PAIN Time Seen by Provider: 08/16/18 19:06 Source of Information: Reports: Patient History Limitations: Reports: No Limitations - History of Present Illness INITIAL COMMENTS - FREE TEXT/NARRATIVE: Patient is a 57-year-old female with history of gout to the left and right great toe. States approximately one month ago she was treated here in the ED for pseudogout to the left knee. Patient was sent home with colchicine. She states that eventually the pain went away over a two-week period. States this morning at approximately 9:00 started developing some pain to the anterior aspect of the left knee with redness along the patella and some swelling. She does have increasing pain with flexion extension but is able to flex and extend as well as walk on the affected extremity with no issues. She is not a diabetic nor does she have a history of septic bursitis. She does have a history of septic bursitis to the right elbow requiring surgical intervention. Patient has felt chilled all day. In addition she woke up last night with night sweats. There's been no documented fever per patient. She did go to the walk-in clinic today and needed to check her which was on her 1F. Upon admission to the ED her temperature is 99.8. She has not taken any medications between the walk-in clinic and admission to the ED. There has been no recent trauma that precipitated worsening discomfort. She denies any alcohol use. Patient denies stiff neck, headache, shortness of breath, cough, chest pain, dysuria, abdominal pain, rash, and/or any additional complaints. Past medical history: Hypercholesterolemia, hypertension, edema to lower extremities, GERD, acid reflux, arthritis, hypothyroidism Current medications include: Vitamin B-12, gabapentin, levothyroxine, pantoprazole Surgical history gastric bypass. No history of injury or surgery to left knee. Left Knee Pain Score (Numeric/FACES): 10 - Related Data Allergies Allergy/AdvReac Type Severity Reaction Status Date / Time adhesive Allergy Hives Verified 08/16/18 19:02 Iodinated Contrast- Oral and Allergy Hives Verified 08/16/18 19:02 IV Dye raspberry Allergy Airway Verified 08/16/18 19:02 Tightness food coloring Allergy Hives Uncoded 08/16/18 19:02 Home Meds: Home Meds Cyanocobalamin (Vitamin B-12) [Vitamin B-12] 1,000 mcg PO Q48H 08/08/18 [History ] Gabapentin [Neurontin] 100 mg PO BEDTIME 08/08/18 [History] Levothyroxine 112 mcg PO DAILY 08/08/18 [History] Acetaminophen/HYDROcodone [[place] 325-5 MG] 1 tab PO Q6H PRN #12 tablet 08/16/18 [Rx] Pantoprazole Sodium [Protonix] 20 mg PO DAILY 08/16/18 [History] cephALEXin [Keflex] 500 mg PO Q6H #28 cap 08/16/18 [Rx] Past Medical History HEENT History: Reports: Impaired Vision Cardiovascular History: Reports: High Cholesterol, Hypertension Other Cardiovascular History: EDEMA - WEARS COMPRESSION STOCKINGS, VARICOSE VEINS Respiratory History: Reports: Asthma Gastrointestinal History: Reports: GERD Other Gastrointestinal History: epigastric pain, hematochezia, reflux Other CUSHION SEWER History: HX OF X4, 1 MISSED, 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 Musculoskeletal History: Reports: Arthritis, Other (See Below) Other Musculoskeletal History: carpal tunnel release, ganglion cyst removal Neurological History: Reports: None Psychiatric History: Reports: None Endocrine/Metabolic History: Reports: Hypothyroidism Other Endocrine/Metabolic History: HYPOTHYROIDISM Hematologic History: Reports: None Immunologic History: Reports: None Oncologic (Cancer) History: Reports: None Dermatologic History: Reports: None - Past Surgical History HEENT Surgical History: Reports: Tonsillectomy Other HEENT Surgeries/Procedures: ADENOIDECTOMY GI Surgical History: Reports: Bariatric Procedure Other Female Surgeries/Procedures: C-SECTIONS X3, LEFT OVARIAN CYSTECTOMY Other Musculoskeletal Surgeries/Procedures:: BILATERAL CARPAL TUNNEL RELEASES X2 , GANGLION CYSTS REMOVED BILATERAL WRISTS Social & Family History - Family History Family Medical History: Noncontributory - Caffeine Use Caffeine Use: Reports: Tea - Living Situation & Occupation Occupation: Employed Review of Systems - Review of Systems Review Of Systems: ROS reveals no pertinent complaints other than HPI. ED EXAM, GENERAL - Physical Exam Exam: See Below Exam Limited By: No Limitations General Appearance: Alert, WD/WN, No Apparent Distress Ears: Hearing Grossly Normal Nose: Normal Inspection Throat/Mouth: Normal Voice, No Airway Compromise Head: Atraumatic, Normocephalic Neck: Normal Inspection, Supple, Non-Tender, Full Range of Motion Respiratory/Chest: No Respiratory Distress, Lungs Clear, Normal Breath Sounds, No Accessory Muscle Use, Chest Non-Tender Cardiovascular: Normal Peripheral Pulses, Regular Rate, Rhythm, No Murmur Peripheral Pulses: 2+: Radial (L), Posterior Tibial (L) GI/Abdominal: Normal Bowel Sounds, Soft, Non-Tender, No Organomegaly, No Distention Back Exam: Normal Inspection Extremities: Other (On examination of the left knee there is increased swelling and slight redness to the anterior aspect of the left knee. Pinpoint tenderness along the patella. She is able to flex and extend the affected extremity at the knee with increasing pain noted along the patella. Increase warmth noted along the patella otherwise on further exam of the knee no increased warmth noted. No open sores present. No draining lesions. No other abnormalities with examination of the left and right lower extremity. She is able to ambulate on the affected extremity with minimal difficulties. No obvious limp present.) Neurological: Alert, Oriented, CN II-XII Intact, Normal Cognition, Normal Gait, No Motor/Sensory Deficits Psychiatric: Normal Affect, Normal Mood Skin Exam: Warm, Dry, Erythema, Increased Warmth Course - Vital Signs Last Recorded V/S: Last Vital Signs Temp 99.8 F 08/16/18 19:03 Pulse 58 L 08/16/18 19:03 Resp 17 08/16/18 19:03 BP 162/66 H 08/16/18 19:03 Pulse Ox 98 08/16/18 19:03 - Orders/Labs/Meds Orders: Active Orders 24 hr Category Date Time Status Knee 3V Lt [CR] Stat Exams 08/16/18 19:18 Taken CULTURE BLOOD [BC] Stat Lab 08/16/18 19:20 Received CULTURE BLOOD [BC] Stat Lab 08/16/18 19:30 Received SEDIMENTATION RATE AUTO [HEME] Stat Lab 08/16/18 19:20 Received Blood Culture x2 Reflex Set [OM.PC] Stat Oth 08/16/18 19:18 Ordered Labs: Laboratory Tests 08/16/18 08/16/18 08/16/18 Range/Units 19:20 19:20 19:20 WBC 9.10 (3.98-10.04) K/mm3 RBC 4.00 (3.98-5.22) M/mm3 Hgb 12.1 (11.2-15.7) gm/L Hct 37.6 (34.1-44.9) % MCV 94.0 (79.4-94.8) fl MCH 30.3 (25.6-32.2) pg MCHC 32.2 (32.2-35.5) g/dl RDW Std Deviation 43.4 (36.4-46.3) fL Plt Count 243 (182-369) K/mm3 MPV 10.7 (9.4-12.3) fl Neutrophils % (Manual) 82 H (40-60) % Band Neutrophils % 0 (0-10) % Lymphocytes % (Manual) 13 L (20-40) % Atypical Lymphs % 0 % Monocytes % (Manual) 3 (2-10) % Eosinophils % (Manual) 2 (0.7-5.8) % Basophils % (Manual) 0 L (0.1-1.2) Platelet Estimate Adequate Plt Morphology Comment Normal Anisocytosis 1+ slight RBC Morph Comment Not Reportable Sodium 143 (136-145) mEq/L Potassium 3.2 L (3.5-5.1) mEq/L Chloride 105 (98-107) mEq/L Carbon Dioxide 27 (21-32) mEq/L Anion Gap 14.2 (5-15) BUN 14 (7-18) mg/dL Creatinine 0.9 (0.55-1.02) mg/dL Est Cr Clr Drug Dosing 67.26 mL/min Estimated GFR (MDRD) > 60 (>60) mL/min BUN/Creatinine Ratio 15.6 (14-18) Glucose 90 (74-106) mg/dL Lactic Acid 0.8 (0.4-2.0) mmol/L Uric Acid 5.1 (2.6-6.0) mg/dL Calcium 9.1 (8.5-10.1) mg/dL Total Bilirubin 0.5 (0.2-1.0) mg/dL AST 41 H (15-37) U/L ALT 54 (14-59) U/L Alkaline Phosphatase 156 H (46-116) U/L C-Reactive Protein 0.5 (<1.0) mg/dL Total Protein 6.6 (6.4-8.2) g/dl Albumin 3.5 (3.4-5.0) g/dl Globulin 3.1 gm/dL Albumin/Globulin Ratio 1.1 (1-2) - Re-Assessments/Exams Free Text/Narrative Re-Assessment/Exam: Labs reviewed: CBC indicated a normal white blood cell count, normal hemoglobin , and normal platelet count. Sodium 143, potassium 3.2, EKG normal, creatinine normal, lactic acid 0.8, uric acid 5.1, and CRP normal. X-ray of the left knee did not reveal any acute findings. Reviewed with Dr. Muñoz. Final interpretation is pending. I suspect patient has septic bursitis although her labs do not reflect increase White blood cell count or CRP. I do not believe this is pseudogout since initial evaluation one month ago she had no improvement with the colchicine. Symptoms resolved over 2 week period on their own. Do not believe patient has a septic joint since she is able to bend the left knee with no difficulties. Able to ambulate with no obvious limp. She is not a diabetic. I have discussed patient with Dr. Muñoz and he agrees. Recommends IM injection of Rocephin with prescription upon discharge. Close follow-up with PCP/orthopedic surgeon in the next 1-2 weeks. I have discussed return precautions with the patient. Patient voiced her understanding. She agrees with plan. Departure - Departure Time of Disposition: 20:22 Disposition: Home, Self-Care 01 Condition: Good Clinical Impression: Septic prepatellar bursitis of left knee - Discharge Information Prescriptions: Acetaminophen/HYDROcodone [[place] 325-5 MG] 1 tab PO Q6H PRN #12 tablet PRN Reason: Pain (Severe 7-10) cephALEXin [Keflex] 500 mg PO Q6H #28 cap Instructions: Pain Medicine Instructions, [id number] Referrals: Ann Dowell MD [Primary Care Provider] - Vu Conrejo MD [Physician] - () Forms: ED Department Discharge Additional Instructions: I suspect you have infected bursa sac. Thus take the Keflex as prescribed. Utilize [place] as needed for severe pain. Please refrain from any activities that cause worsening discomfort. If symptoms persist over the next 3 days please call make an appointment to see orthopedic surgeon of your choice. Of unable to see her PCP. If for any reason you develop any new or worsening symptoms as discussed please return back to the ED for further evaluation. - My Orders Last 24 Hours: My Active Orders 08/16/18 19:18 Knee 3V Lt [CR] Stat Blood Culture x2 Reflex Set [OM.PC] Stat 08/16/18 19:20 CULTURE BLOOD [BC] Stat SEDIMENTATION RATE AUTO [HEME] Stat 08/16/18 19:30 CULTURE BLOOD [BC] Stat - Assessment/Plan Last 24 Hours: My Active Orders 08/16/18 19:18 Knee 3V Lt [CR] Stat Blood Culture x2 Reflex Set [OM.PC] Stat 08/16/18 19:20 CULTURE BLOOD [BC] Stat SEDIMENTATION RATE AUTO [HEME] Stat 08/16/18 19:30 CULTURE BLOOD [BC] Stat
[2018-08-16 19:19] VITALS: BP 162/66
[2018-08-16] MEDS ORDERED: cefTRIAXone 1 GM, Lidocaine 1% 2.1 ML IM ONE ×2 (20:12)
--- NOTE | 2018-08-19 07:17 | CR ---
Left knee: AP, lateral and sunrise patellar views of the left knee were obtained. Small calcification is noted within the medial patellofemoral joint. Difficult to exclude a small loose body. Patellofemoral joint appears preserved. Spurring is noted off the superior and inferior patella at the insertion of the quadriceps tendon and patellar ligament. Medial and lateral joint spaces are maintained in height. No discrete joint effusion is seen. No fracture or other bony abnormality is seen. Impression: 1. Spurring off the patella as described above. 2. Possible small loose body projected within the medial patellofemoral joint. Diagnostic code #3
== END 2018-08-16 20:40 | disposition home or self-care (01) ==
LOC: JD.ED 18:53
DX: M70.42 Prepatellar bursitis, left knee (principal); M00.9 Pyogenic arthritis, unspecified; I10 Essential (primary) hypertension; E78.00 Pure hypercholesterolemia, unspecified; K21.9 Gastro-esophageal reflux disease without esophagitis; E03.9 Hypothyroidism, unspecified; Z79.899 Other long term (current) drug therapy; Z91.09 Other allergy status, other than to drugs and biological substances; Z91.018 Allergy to other foods; Z91.041 Radiographic dye allergy status
CPT/HCPCS: 36415; 73562; 80053; 83605; 84550; 85007; 85027; 85652; 86140; 87040; 96372; 99283; J0696; J2001; 99284

== ENCOUNTER 2019-02-09 19:06 | Emergency (ER) | payer BC ==
[2019-02-09 19:17] VITALS: BP 164/75; PULSE 60
[2019-02-09] MEDS ORDERED: Cephalexin 500 MG Cap PO STA (19:40)
--- NOTE | 2019-02-09 19:52 | EDM.PDOC ---
ED HPI GENERAL MEDICAL PROBLEM - General Chief Complaint: General Stated Complaint: ALL OVER JOINT PAIN Time Seen by Provider: 02/09/19 19:12 Source of Information: Reports: Patient History Limitations: Reports: No Limitations - History of Present Illness INITIAL COMMENTS - FREE TEXT/NARRATIVE: Ms. Burger is a 58-year-old woman with a past medical history significant for arthritis, asthma, hypothyroidism, and untreated hypertension, who was seen in this emergency department in late July of this year for left knee pain. An aspiration of the bursa grew gram-positive cocci, and, initially, there was concern that the patient had septic bursitis. She was admitted to this hospital in early August and treated with IV antibiotics. The culture, however, eventually grew micrococcus in only one bottle, which was felt to be a skin contaminant. The patient states that she followed-up with an Orthopedic Surgeon in September, and was told that she simply had "bursitis". He states that surgery was recommended, but that she could not afford it. The patient states that she has had left knee pain on and off ever since then. She states that she developed right elbow pain on 02/07/2019, then, this morning, developed left elbow pain as well as right knee pain. Pain is only present if she moves the joints, although she also notes a tender to palpation. No prior similar symptoms. The patient states that she took 800 mg of ibuprofen this morning, then again at 17:30 this evening, however, she was told following her gastric bypass that she should try to minimize NSAIDs. The patient also reports that she has tramadol at home, but states that she hasn't taken any. The patient denies recent illness, such as fever, chills, cough, dyspnea, chest pain, palpitations, nausea, vomiting, constipation, diarrhea, abdominal pain, urinary symptoms, recent weight gain or weight loss, recent bloody bowel movements or black bowel movements, recent headaches, or rashes. The patient's PCP is Dr. Roland. The patient has an appointment to see Dr. Roland on 02/20/19. Her Orthopedic Surgeon is Dr. Vu Cornejo. The patient has not received an influenza vaccine this season, and declined an offer for one here [facility]. Generalized Pain Score (Numeric/FACES): 8 - Related Data Allergies Allergy/AdvReac Type Severity Reaction Status Date / Time adhesive Allergy Hives Verified 08/19/18 20:19 Iodinated Contrast Media Allergy Hives Verified 08/19/18 20:19 [Iodinated Contrast- Oral and IV Dye] raspberry Allergy Airway Verified 08/19/18 20:19 Tightness food coloring Allergy Hives Uncoded 08/19/18 20:19 Home Meds: Home Meds Gabapentin [Neurontin] 200 mg PO BEDTIME 08/08/18 [History] Levothyroxine 112 mcg PO DAILY 08/08/18 [History] Pantoprazole Sodium [Protonix] 20 mg PO DAILY 08/16/18 [History] Ibuprofen [Motrin] 600 mg PO Q8H PRN #15 tablet 08/24/18 [Rx] Past Medical History HEENT History: Reports: Impaired Vision Cardiovascular History: Reports: Hypertension (untreated) Respiratory History: Reports: Asthma (PFT-confirmed) Gastrointestinal History: Reports: GERD : 4 Musculoskeletal History: Reports: Arthritis Endocrine/Metabolic History: Reports: Hypothyroidism - Infectious Disease History Infectious Disease History: Reports: Chicken Pox, Measles, Mumps - Past Surgical History HEENT Surgical History: Reports: Adenoidectomy, Tonsillectomy GI Surgical History: Reports: Bariatric Procedure (gastric bypass Dec 2016), Cholecystectomy (1995 or 1996) Female Surgical History: Reports: Section (x 3), Other (See Below) ( Left ovarian cystectomy) Musculoskeletal Surgical History: Reports: Carpal Tunnel (bilateral, x 2), Ganglion Cyst (bilateral wrists) Social & Family History - Family History Family Medical History: Noncontributory - Tobacco Use Smoking Status *Q: Never Smoker Second Hand Smoke Exposure: No - Caffeine Use Caffeine Use: Reports: Tea - Alcohol Use Alcohol Use History: No - Recreational Drug Use Recreational Drug Use: No - Living Situation & Occupation Living situation: Reports: , Alone Occupation: Employed ([employer]) ED ROS GENERAL - Review of Systems Review Of Systems: Comprehensive ROS is negative, except as noted in HPI. ED EXAM, GENERAL - Physical Exam Exam: See Below Exam Limited By: No Limitations General Appearance: Alert, WD/WN, No Apparent Distress Extremities: Other (The extensor surface of the patient's right elbow is ecchymotic, but there is no visible swelling to the right elbow. She reports tenderness to the ulnar groove. She reports pain to the right elbow with flexion and extension. No visible abnormality at all to the left elbow, such as swelling, erythema, ecchymosis, or abrasion, although the patient also has tenderness in her left ulnar groove. There is ecchymosis to the anterior left patella, although no other visible abnormalities, such as swelling, generalized erythema, or abrasion. The patient reports tenderness to the anterior patella, but denies tenderness to the quadriceps tendon or patellar tendon. There is no joint effusion, no tenderness to the left knee joint. No pain with ROM. There is no visible abnormality whatsoever to the right knee, and the patient has minimal, if any tenderness to the patella or right knee joint. Painless ROM to the right knee, as well.) Course - Vital Signs Last Recorded V/S: Last Vital Signs Temp 36.8 C 02/09/19 19:14 Pulse 60 02/09/19 19:14 Resp 16 02/09/19 19:14 BP 164/75 H 02/09/19 19:14 Pulse Ox 99 02/09/19 19:14 - Orders/Labs/Meds Meds: Medications Discontinued Medications Generic Name Dose Route Start Last Admin Trade Name Carmen PRN Reason Stop Dose Admin Cephalexin 500 mg 02/09/19 19:40 02/09/19 19:46 Keflex PO 02/09/19 19:41 500 mg ONETIME STA Administration - Re-Assessments/Exams Free Text/Narrative Re-Assessment/Exam: 02/09/19 19:52 The patient is likely suffering from relatively mild bursitis of her bilateral elbows and bilateral knees, with her right elbow and left knee being worse than the other two. I strongly doubt an infection, but I don't think it is unreasonable to treat the patient for a few days with an antibiotic, just in case. I will start her on Keflex, and prescribe a 5-day course via [employer]. The patient should ice her joints as much as possible, and take ibuprofen as much as allowable, given her history of gastric bypass. I would like her to follow-up with Dr. Cornejo this week. The patient reported that she has tramadol at home, but that she has not been taking it. Nevertheless, she asked me for a prescription for an opioid pain reliever. I don't feel that mild bursitis rises to the need of an opioid, therefore I denied her request. Departure - Departure Time of Disposition: 19:55 Disposition: Home, Self-Care 01 Condition: Good Clinical Impression: Bursitis - Discharge Information *PRESCRIPTION DRUG MONITORING PROGRAM REVIEWED*: Not Applicable *COPY OF PRESCRIPTION DRUG MONITORING REPORT IN PATIENT JUNITO: Not Applicable Instructions: Bursitis Referrals: Ann Dowell MD [Primary Care Provider] - Vu Cornejo MD [Physician] - Forms: ED Department Discharge Additional Instructions: You were seen in the emergency room for into both of your elbows and both of your knees, with your right elbow and left knee being worse than the other two. Based on your history and physical examination, you are most likely suffering from relatively mild bursitis. Although an infection is unlikely, you have been started on the antibiotic Keflex, and a prescription for Keflex has been provided to via [employer]. Take one tablet of Keflex every 6 hours, as prescribed. You should ice all 4 of your joints is much as possible. Take [id number] ibuprofen, 3 tablets (600 mg) every 8 hours with food, as needed for discomfort. Follow-up with the Orthopedic Surgeon Dr. Vu Cornejo this week, for further evaluation and treatment. Make sure that the building carpenter helper knows that you are following up from the ER. If any other problems, please do not hesitate to return to the ER. Sepsis Event Note - Evaluation Sepsis Screening Result: No Definite Risk - Focused Exam Vital Signs: Vital Signs Temp Pulse Resp BP Pulse Ox 02/09/19 19:14 36.8 C 60 16 164/75 H 99 Date Exam was Performed: 02/09/19 Time Exam was Performed: 20:29
== END 2019-02-09 20:05 | disposition home or self-care (01) ==
LOC: JD.ED 19:06
DX: M70.32 Other bursitis of elbow, left elbow (principal); M70.31 Other bursitis of elbow, right elbow; M70.52 Other bursitis of knee, left knee; M70.51 Other bursitis of knee, right knee; I10 Essential (primary) hypertension; K21.9 Gastro-esophageal reflux disease without esophagitis; E03.9 Hypothyroidism, unspecified; Z91.041 Radiographic dye allergy status; Z91.02 Food additives allergy status; Z91.018 Allergy to other foods; Z91.048 Other nonmedicinal substance allergy status; Z79.899 Other long term (current) drug therapy; Z79.890 Hormone replacement therapy
CPT/HCPCS: 99283; A9270

== ENCOUNTER 2021-02-01 05:58 | Emergency (ER) | payer BC ==
[2021-02-01 06:10] VITALS: PULSE 52
--- NOTE | 2021-02-01 06:16 | EDM.PDOC ---
<Adriel Ryan - Last Filed: 02/01/21 07:31> ED HPI GENERAL MEDICAL PROBLEM - General Chief Complaint: ENT Problem Stated Complaint: SOB Time Seen by Provider: 02/01/21 06:15 - History of Present Illness INITIAL COMMENTS - FREE TEXT/NARRATIVE: 60-year-old female presents to the emergency room with sore throat and breathing difficulties. 2 days ago in the morning the patient noticed sore throat. This is progressively gotten worse. She was doing okay when she went to bed this evening. However, this morning the patient felt almost short of breath and difficulty in her throat. Drinking water was very painful this morning. Patient does have a history of asthma however does not take anything for this. She denies any recent sick contacts or exposures. Patient denies any smoking history. The patient has had the Covid vaccine including a booster at this point. Throat Pain Score (Numeric/FACES): 7 - Related Data Allergies Allergy/AdvReac Type Severity Reaction Status Date / Time adhesive Allergy Hives Verified 02/01/21 06:05 Iodinated Contrast Media Allergy Hives Verified 02/01/21 06:05 [Iodinated Contrast- Oral and IV Dye] raspberry Allergy Airway Verified 02/01/21 06:05 Tightness food coloring Allergy Hives Uncoded 02/01/21 06:05 Home Meds: Home Meds Gabapentin [Neurontin] 200 mg PO BEDTIME 08/08/18 [History] Levothyroxine 112 mcg PO DAILY 08/08/18 [History] Pantoprazole Sodium [Protonix] 20 mg PO DAILY 08/16/18 [History] Ibuprofen [Motrin] 600 mg PO Q8H PRN #15 tablet 08/24/18 [Rx] Hydrocodone/Acetaminophen [HYDROcodone-Acetaminophen 5-325 MG] 1 each PO Q4HR PRN #14 tab 02/01/21 [Rx] cephALEXin [Cephalexin] 500 mg PO TID #20 capsule 02/01/21 [Rx] predniSONE [Prednisone] 50 mg PO DAILY #6 tablet 02/01/21 [Rx] Past Medical History HEENT History: Reports: Impaired Vision Cardiovascular History: Reports: Hypertension (untreated) Other Cardiovascular History: EDEMA - WEARS COMPRESSION STOCKINGS, VARICOSE VEINS Respiratory History: Reports: Asthma (PFT-confirmed) Gastrointestinal History: Reports: GERD Other Gastrointestinal History: epigastric pain, hematochezia, reflux 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: HX OF X4, 1 MISSED, 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 Musculoskeletal History: Reports: Arthritis Other Musculoskeletal History: carpal tunnel release, ganglion cyst removal Neurological History: Reports: Neuropathy, Peripheral Psychiatric History: Reports: None Endocrine/Metabolic History: Reports: Hypothyroidism Other Endocrine/Metabolic History: HYPOTHYROIDISM Hematologic History: Reports: None Immunologic History: Reports: None Oncologic (Cancer) History: Reports: None Dermatologic History: Reports: None - Infectious Disease History Infectious Disease History: Reports: Chicken Pox, Measles, Mumps Other Infectious Disease History: Staph. Aureus - Past Surgical History HEENT Surgical History: Reports: Adenoidectomy, Tonsillectomy GI Surgical History: Reports: Bariatric Procedure (gastric bypass Dec 2016), Cholecystectomy (1995 or 1996) Female Surgical History: Reports: Section (x 3), Other (See Below) (Left ovarian cystectomy) Musculoskeletal Surgical History: Reports: Carpal Tunnel (bilateral, x 2), Ganglion Cyst (bilateral wrists) Social & Family History - Family History Family Medical History: No Pertinent Family History - Caffeine Use Caffeine Use: Reports: Tea - Living Situation & Occupation Living situation: Reports: , Alone Occupation: Employed ([employer]) ED ROS GENERAL - Review of Systems Review Of Systems: See Below Constitutional: Reports: No Symptoms HEENT: Reports: Throat Pain Respiratory: Denies: Shortness of Breath, Wheezing, Cough Endocrine: Reports: No Symptoms : Reports: No Symptoms Musculoskeletal: Reports: No Symptoms Skin: Reports: No Symptoms Neurological: Reports: No Symptoms ED EXAM, GENERAL - Physical Exam Exam: See Below Exam Limited By: No Limitations General Appearance: Alert Eye Exam: Bilateral Eye: Normal Inspection Ears: Normal External Exam, Normal Canal, Hearing Grossly Normal, Normal TMs Nose: Normal Inspection, Normal Mucosa, No Blood Throat/Mouth: Normal Inspection, Normal Lips, Normal Gums, Normal Oropharynx, Other (Exam concerning for upper airway). No: Normal Voice Head: Atraumatic, Normocephalic Neck: Supple, Non-Tender. No: Lymphadenopathy (L), Lymphadenopathy (R), Tender Lateral, Tender Midline, Thyromegaly Respiratory/Chest: Other (Almost near stridorous sounds no wheezes crackles or rhonchi) Cardiovascular: Regular Rate, Rhythm, No Edema, No Murmur GI/Abdominal: Normal Bowel Sounds, Soft, Non-Tender Course - Re-Assessments/Exams Free Text/Narrative Re-Assessment/Exam: 02/01/21 07:49 I am concerned about some potential airway problems here. It is unlikely she has croup but is almost acting this way. She is cautiously breathing in and out. CT evaluation of the neck was done without IV contrast as the patient declined due to allergies. Showed no acute changes in the neck prior thyroidectomy and expected degenerative changes within the bony structures. Did show some scattered ground glass appearance within the visualized lung ruiz suggestive of viral infection versus atelectasis. The patient early on intercourse received Solu-Medrol Pepcid and Benadryl. At this time she is really not doing any better we did attempt racemic epi and at this time the patient seems a little more comfortable and she thinks she is doing a little better but it was not a striking improvement. At this point it is change of shift further care and disposition per Dr. Hartman Departure - Departure Disposition: Home, Self-Care 01 Clinical Impression: Pharyngitis Qualifiers: Pharyngitis/tonsillitis etiology: unspecified etiology Qualified Code(s): J02.9 - Acute pharyngitis, unspecified Dyspnea Qualifiers: Dyspnea type: unspecified Qualified Code(s): R06.00 - Dyspnea, unspecified - Discharge Information Prescriptions: cephALEXin [Cephalexin] 500 mg PO TID #20 capsule Hydrocodone/Acetaminophen [HYDROcodone-Acetaminophen 5-325 MG] 1 each PO Q4HR PRN #14 tab PRN Reason: Pain predniSONE [Prednisone] 50 mg PO DAILY #6 tablet Instructions: Pharyngitis, [id number] Referrals: Curt Barrera MD [Primary Care Provider] - Forms: ED Department Discharge Additional Instructions: Cephalexin 500 mg 3 times daily for 1 week or until gone. Prednisone 50 mg daily for 5 days, Take your first dose this evening and than q AM for the next 4 days. hydrocodone q 4 to 6 hr as needed for throat discomfort. Prescriptions have been sent to [facility] Use inhaler q 4 to 6 hr as needed. See your medical provider or Sunday for recheck, call today for appt. Return to ED as needed if symptoms worsening in any way. Sepsis Event Note (ED) - Evaluation Sepsis Screening Result: No Definite Risk <Boris Hartman L - Last Filed: 02/01/21 09:37> Course - Vital Signs Last Recorded V/S: Last Vital Signs Temp 96.7 F L 02/01/21 06:05 Pulse 52 L 02/01/21 06:05 Resp 20 02/01/21 06:05 BP 152/77 H 02/01/21 06:05 Pulse Ox 88 L 02/01/21 08:06 - Orders/Labs/Meds Orders: Active Orders 24 hr Category Date Time Status RT Aerosol Therapy [RC] ASDIRECTED Care 02/01/21 07:04 Active RT Aerosol Therapy [RC] ASDIRECTED Care 02/01/21 08:06 Active Sodium Chloride 0.9% Med 02/01/21 07:03 Active 3 ml INH ASDIRECTED PRN Medication Orders Sodium Chloride (Sodium Chloride 0.9% Inhalation Soln 3 Ml Neb) 3 ml INH ASDIRECTED PRN PRN Reason: mix with racepinephrine neb Labs: Laboratory Tests 02/01/21 Range/Units 07:45 SARS-CoV-2 RNA ([facility]) Negative (NEGATIVE) Meds: Medications Generic Name Dose Route Start Last Admin Trade Name Freq PRN Reason Stop Dose Admin Sodium Chloride 3 ml 02/01/21 07:03 Sodium Chloride 0.9% Inhalation Soln 3 Ml Neb INH ASDIRECTED PRN mix with racepinephrine neb Discontinued Medications Generic Name Dose Route Start Last Admin Trade Name Freq PRN Reason Stop Dose Admin Hydrocodone Bitart/Acetaminophen 1 tab 02/01/21 08:50 02/01/21 09:21 Acetaminophen/Hydrocodone 325-5 Mg Tab PO 02/01/21 08:51 1 tab ONETIME ONE Administration Albuterol/Ipratropium 3 ml 02/01/21 08:05 02/01/21 08:15 Albuterol/Ipratropium 3.0-0.5 Mg/3 Ml Neb Soln NEB 02/01/21 08:06 3 ml ONETIME ONE Administration Cephalexin 500 mg 02/01/21 08:50 02/01/21 09:21 Cephalexin 500 Mg Cap PO 02/01/21 08:51 500 mg ONETIME ONE Administration Diphenhydramine HCl 50 mg 02/01/21 06:25 02/01/21 06:34 Diphenhydramine 50 Mg/Ml Sdv IVPUSH 02/01/21 06:26 50 mg ONETIME ONE Administration Famotidine 40 mg 02/01/21 06:25 02/01/21 06:33 Famotidine 20 Mg/2 Ml Sdv IVPUSH 02/01/21 06:26 40 mg ONETIME ONE Administration Methylprednisolone Sodium Succinate 125 mg 02/01/21 06:25 02/01/21 06:33 Methylprednisolone Sodium Succinate 125 Mg/2 Ml Sdv IVPUSH 02/01/21 06:26 125 mg ONETIME ONE Administration Racepinephrine 0.5 ml 02/01/21 07:03 02/01/21 07:33 Racepinephrine 2.25% 0.5 Ml Neb Soln NEB 02/01/21 07:04 0.5 ml ONETIME ONE Administration - Re-Assessments/Exams Free Text/Narrative Re-Assessment/Exam: 02/01/21 08:53. Have assumed care from Dr Ryan. I agree with his hx and exam as documented. Pt resting and breathing somewhat more comfortably after 2 neb treatments. Still has the severe throat discomfort that started yesterday morning. On exam her throat is mildly inflamed, not swollen, no exudate. Moving air satisfactorily, sats 94 %. very mild wheezing. Going to start her on cephalexin 500 mg tid, give her a hydrocodone for pain. Discharge instr. as documented. Strong return precautions given. 02/01/21 09:17. Has had CT of neck, soft tissue, have reviewed report, no discrete soft tissue abnormality visualized. She has had solumedrol IV. Will continue her on prednisone 50 mg daily for 5 days. She has an inhaler that she will also continue to use. Departure - Departure Time of Disposition: 09:24 Condition: Fair Sepsis Event Note (ED) - Focused Exam Vital Signs: Vital Signs Temp Pulse Resp BP Pulse Ox Pulse Ox 02/01/21 08:06 88 L 02/01/21 06:05 96.7 F L 52 L 20 152/77 H 95
[2021-02-01] MEDS ORDERED: methylPREDNISolone Sodium Succinate 125 MG/2 ML SDV IVPUSH ONE (06:25)
[2021-02-01] MEDS ORDERED: Famotidine 20 MG/2 ML SDV IVPUSH ONE (06:25)
[2021-02-01] MEDS ORDERED: diphenhydrAMINE 50 MG/ML SDV IVPUSH ONE (06:25)
[2021-02-01 06:45] VITALS: BP 152/77
[2021-02-01] MEDS ORDERED: Sodium Chloride 0.9% Inhalation Soln 3 ML Neb INH PRN (07:03)
[2021-02-01] MEDS ORDERED: Racepinephrine 2.25% 0.5 ML Neb Soln NEB ONE (07:03)
--- NOTE | 2021-02-01 07:18 | CT ---
CT neck Technique: Multiple axial sections were obtained from above the external auditory canals inferiorly to the lung apices. Reconstructed coronal and sagittal images were obtained. Comparison: No prior imaging is available of the neck. Prior chest x-ray of 10/04/17. Findings: Visualized lung apices show scattered groundglass appearance. Submandibular salivary glands and parotid salivary glands show no abnormality. Visualized paranasal sinuses show nothing acute. Visualized mastoid sinuses show nothing acute. Parapharyngeal soft tissues are symmetric between right and left sides. Epiglottis appears normal in size. Surgical clips are seen from prior thyroidectomy. Prevertebral soft tissues are normal. No adenopathy is seen. Diffuse anterior spurring is seen throughout the cervical spine and extending into the thoracic spine. Degenerative change is scattered within the apophyseal joints within the cervical spine. No abnormal subluxation is seen. Impression: 1. Prior thyroidectomy. 2. Degenerative change within the cervical spine. 3. No discrete soft tissue abnormality is appreciated on noncontrast CT study of the neck. 4. Scattered groundglass appearance within the visualized lungs. Groundglass appearance can be due to viral infections as well as multiple areas of subsegmental atelectasis if the patient has no chest symptoms. Diagnostic code #2
[2021-02-01] MEDS ORDERED: Albuterol/Ipratropium 3.0-0.5 MG/3 ML Neb Soln NEB ONE (08:05)
--- NOTE | 2021-02-01 08:12 | CR ---
Chest: Portable view of the chest was obtained. Comparison: Prior chest x-ray of 10/04/17. Heart size is slightly prominent. Upper mediastinum is normal. Surgical clips are seen within the right neck. Lungs are clear with no acute parenchymal change. No acute osseous abnormality is appreciated. Impression: 1. Heart size is slightly prominent. 2. Surgical clips within the right neck base. 3. Nothing acute is otherwise seen on portable chest x-ray. Diagnostic code #2
[2021-02-01] MEDS ORDERED: Acetaminophen/HYDROcodone 325-5 MG Tab PO ONE (08:50)
[2021-02-01] MEDS ORDERED: Cephalexin 500 MG Cap PO ONE (08:50)
== END 2021-02-01 09:40 | disposition home or self-care (01) ==
LOC: JD.ED 05:58
DX: J02.9 Acute pharyngitis, unspecified (principal); R06.02 Shortness of breath; E03.9 Hypothyroidism, unspecified; K21.9 Gastro-esophageal reflux disease without esophagitis; I10 Essential (primary) hypertension; Z91.048 Other nonmedicinal substance allergy status; Z91.041 Radiographic dye allergy status; Z91.018 Allergy to other foods; Z79.899 Other long term (current) drug therapy; Z20.822 Contact with and (suspected) exposure to COVID-19
CPT/HCPCS: 70490; 71045; 87635; 94640; 96374; 96375; 99284; A9270; J1200; J2930; J3490; J7620-GY; U0002